=== PATIENT | female | born 1995 | race Caucasian/White ===

== ENCOUNTER 2017-04-03 14:54 | Emergency (ER) | payer OTHER ==
[~2017-04-03] VITALS: Ht 170.2 cm; Wt 58.1 kg
[2017-04-03] MEDS ORDERED: SODIUM CHLORIDE 0.9% 1000ML 1,000 ML IV STA (14:59)
[2017-04-03] MEDS ORDERED: ONDANSETRON INJ 2 MG/ML 2 ML VIAL IV STA (14:59)
[2017-04-03 15:03] VITALS: TEMP 36.7; Ht 170.2 cm; Wt 58.1 kg
[2017-04-03] MEDS ORDERED: OPTIRAY 320 IV PRN (15:15)
[2017-04-03] MEDS ORDERED: PATIENT'S ALLERGY INFO NEEDS ENTERED SCH (15:15)
[2017-04-03 15:45] LABS: BASO % 0.2 %; BASO ABS # 0.02 K/uL (0-0.2); COMPLETE YES; EOS % 0.5 %; HEMATOCRIT 42.5 % (37-47); IG% 0.3 %; LYMPH % 15.6 %; LYMPH ABS # 1.95 K/uL (1.2-3.4); MEAN CELL VOLUME 85.3 fL (80-100); MEAN CORPUSCULAR HEMOGLOBIN 28.9 pg (25-34); MEAN CORPUSCULAR HGB CONC 33.9 g/dl (32-36); MEAN PLATELET VOLUME 10.6 fL (7.4-10.4); MONO % 9.3 %; NEUT % 74.1 %; PLATELET COUNT 231 K/uL (130-400); RED BLOOD COUNT 4.98 M/uL (4.2-5.4); WHITE BLOOD COUNT 12.47 K/uL (4.8-10.8)
[2017-04-03 16:04] LABS: BUN/CREATININE RATIO 14.3 (10-20); CALCIUM 10.1 mg/dl (8.5-10.1); CREATININE 0.9 mg/dl (0.60-1.20); POTASSIUM 4.2 mmol/L (3.5-5.1)
[2017-04-03 16:09] LABS: PARTIAL THROMBOPLASTIN RATIO 1.2; PROTHROMBIN TIME (PATIENT) 11.1 SECONDS (9.0-12.0)
--- NOTE | 2017-04-03 16:57 | DIAGNOSTIC IMAGING REPORT ---
ULTRASOUND OF THE APPENDIX CLINICAL HISTORY: Right lower quadrant abdominal pain. COMPARISON STUDY: No priors. FINDINGS: Real-time, grayscale, and color flow sonography of the right lower quadrant was performed to assess for acute appendicitis. The appendix was not discretely visualized. No inflammatory changes or free fluid are seen in the right lower quadrant. No lymphadenopathy was seen. Survey images of the right flank show moderate right hydroureteronephrosis. A nonobstructing stone is present within the right kidney. Both ureteral jets were seen in the bladder. IMPRESSION: 1. Nonvisualization of the appendix. Note that this does not exclude acute appendicitis. 2. There is right-sided hydronephrosis and a nonobstructing right renal calculus is identified. Given the history of right-sided pain the findings are suspicious for obstructing an obstructing right ureteral calculus. A right ureteral jet was identified during the examination. Correlation with clinical findings and urinalysis will be required. Electronically signed by: Jon Thomas M.D. 04/03/2017 4:56 PM Dictated Date/Time: 04/03/2017 4:54 PM
--- NOTE | 2017-04-03 17:01 | DIAGNOSTIC IMAGING REPORT ---
PELVIC ULTRASOUND CLINICAL HISTORY: Right lower quadrant pain. COMPARISON STUDY: None. TECHNIQUE: Transabdominal and transvaginal sonography of the pelvis was performed. FINDINGS: The uterus measures 6.7 x 3.5 x 4.5 cm. Endometrium measures 1.1 cm in thickness. The right ovary measures 3.4 x 2.8 x 2.9 cm and contains a 2 cm hypoechoic lesion which could reflect a corpus luteal cyst. The left ovary measures 3.3 x 2.1 x 1.9 cm. There was color flow within each ovary. A small amount of free fluid was noted. IMPRESSION: 1. 2 cm hypoechoic right ovarian lesion which may reflect a corpus luteal cyst. No sonographic evidence of ovarian torsion. 2. Small amount of free fluid within the pelvis. 3. Normal sonographic appearance of the uterus and left ovary. Electronically signed by: Cezar Hernandez M.D. 04/03/2017 5:00 PM Dictated Date/Time: 04/03/2017 4:55 PM
--- NOTE | 2017-04-03 18:13 | DIAGNOSTIC IMAGING REPORT ---
CT SCAN OF THE ABDOMEN AND PELVIS WITH IV CONTRAST CLINICAL HISTORY: Right-sided abdominal pain. COMPARISON STUDY: Right lower quadrant and pelvic ultrasounds performed the same day 04/03/2017. TECHNIQUE: Following the IV administration of 94 cc of Optiray 320, CT scan of the abdomen and pelvis is performed from the lung bases to the proximal femora. Images are reviewed in the axial, sagittal, and coronal planes. IV contrast was administered without complication. A dose lowering technique was utilized adhering to the principles of ALARA. CT DOSE: 269.19 mGy.cm FINDINGS: Lung bases: The heart is normal in size and without pericardial effusion. The lung bases are clear. Liver: The contrast-enhanced liver is normal in size, contour, and attenuation. Focal fatty infiltration is seen adjacent to falciform ligament. There is no intrahepatic biliary ductal dilatation. The hepatic veins and portal veins are patent. Gallbladder: Unremarkable. Spleen: Normal in size and attenuation. Pancreas: Unremarkable. Adrenal glands: Unremarkable. Kidneys: The contrast enhanced kidneys are normal in size. There is a 4 mm obstructing calculus in the right proximal ureter seen on axial image #164. This is located at the level of L3-L4 and causes mild to moderate right-sided hydronephrosis. Additional nonobstructing calculi measuring up to 6 mm are present in both kidneys. There is no left-sided hydronephrosis. There is slightly heterogeneous enhancement the right kidney, likely related to obstruction.. Abdominal vasculature: The abdominal aorta is normal in course and caliber. Bowel: The small bowel and colon are normal in course and caliber. The appendix is well-visualized and normal. Peritoneum: There is no intraperitoneal free air or abdominal ascites. Lymphadenopathy: None. Pelvic viscera: The bladder, uterus, and adnexa are normal as visualized. An involuting follicle is noted in the right ovary. There is a small volume of free fluid in the cul-de-sac. Skeletal structures: There is mild thoracolumbar scoliosis. No lytic or blastic lesions are seen. IMPRESSION: 1. There is a 4 mm obstructing calculus in the right proximal ureter. This causes mild to moderate right-sided hydronephrosis. 2. There are additional bilateral nonobstructing renal calculi. 3. There is a small volume of free fluid in cul-de-sac, likely within physiologic limits. Electronically signed by: Jon Thomas M.D. 04/03/2017 6:11 PM Dictated Date/Time: 04/03/2017 6:04 PM
[2017-04-03 18:26] LABS: URINE APPEARANCE CLEAR (CLEAR); URINE BILIRUBIN NEG (NEG); URINE COLOR YELLOW; URINE EPITHELIAL CELL AUTO >30 /lpf (0-5); URINE NITRITE NEG (NEG); URINE SPECIFIC GRAVITY 1.008 (1.000-1.030); UROBILINOGEN NEG (NEG); ZZUR CULT IF INDIC CLEAN CATCH NO
[2017-04-03 19:00] LABS: MANUAL MICROSCOPIC REQUIRED? NO; REVIEW REQ? NO
[2017-04-03] MEDS ORDERED: KETOROLAC TROMETHAMINE 30 MG/ML VIAL IV STA (19:11)
[2017-04-03] MEDS ORDERED: OXYC-57 PO (19:13)
[2017-04-03] MEDS ORDERED: ONDA4TAB10 SL (19:13)
--- NOTE | 2017-04-03 19:16 | EMERGENCY ROOM VISIT NOTE ---
History Report prepared by Scribjulius: Joshua Arrington Under the Supervision of: Dr. Erik Guzman D.O. First contact with patient: 14:58 Chief Complaint: ABDOMINAL PAIN Stated Complaint: ABDOMINAL PAIN History of Present Illness The patient is a 21 year old female who presents to the Emergency Room with complaints of worsening RLQ abdominal pain beginning six hours ago. She was seen at [facility] for her symptoms just prior to arrival and referred to the ED with concerns of possible appendicitis. She rates her pain as an 8/10 in severity. The patient states that her pain was present upon waking this morning. She states that she went to a dance class this morning and felt faint and lightheaded. Her pain is worsened with sitting up. The patient states that she initially thought her pain was period cramping. She is sexually active with one male partner, and always uses condoms but no other form of contraceptive. She notes that a used condom got stuck inside of her this past weekend, but there were no tears to the condom upon removal. The patient's LNMP was about 1 month ago. She states that she has been limping due to her pain recently. Source of History: patient Onset: six hours ago Position: abdomen (RLQ) Symptom Intensity: 8/10 Timing: worsening Modifying Factors (Worsening): other (sitting up) Note: Additional symptoms: episode of lightheadedness. Review of Systems See HPI for pertinent positives & negatives. A total of 10 systems reviewed and were otherwise negative. Past Medical & Surgical Medical Problems: (1) No Known Active Medical Problems Family History No pertinent family history stated. Social History Smoking Status: Never Smoker Occupation Status: [employer] student Current/Historical Medications No Active Prescriptions or Reported Meds Allergies Coded Allergies: Alprazolam (Unverified Adverse Reaction, Unknown, NAUSEA, 04/03/17) Physical Exam Vital Signs Date Time Temp Pulse Resp B/P (MAP) Pulse Ox O2 Delivery O2 Flow Rate FiO2 04/03/17 17:43 74 18 109/75 98 Room Air 04/03/17 15:03 36.7 83 20 113/75 99 Room Air Physical Exam CONSTITUTIONAL/VITAL SIGNS: Reviewed / noted above. GENERAL: Non-toxic in appearance. INTEGUMENTARY: Warm, dry, and [place]. HEAD: Normocephalic. EYES: without scleral icterus or trauma. ENT/OROPHARYNX: clear and moist. LYMPHADENOPATHY/NECK: Is supple without lymphadenopathy or meningismus. RESPIRATORY: Lungs clear and equal. CARDIOVASCULAR: Regular rate and rhythm. GI/ABDOMEN: Soft with RLQ abdominal tenderness. No organomegaly or pulsatile mass. No rebound or guarding. Normal bowel sounds. EXTREMITIES: Warm and well perfused. BACK: No CVA tenderness. NEUROLOGICAL: Intact without focal deficits. PSYCHIATRIC: normal affect. MUSCULOSKELETAL: Normally developed with good muscle tone. Medical Decision & Procedures ER Provider Diagnostic Interpretation: Radiology results as stated below per my review and radiologist interpretation: CT SCAN OF THE ABDOMEN AND PELVIS WITH IV CONTRAST FINDINGS: Lung bases: The heart is normal in size and without pericardial effusion. The lung bases are clear. Liver: The contrast-enhanced liver is normal in size, contour, and attenuation. Focal fatty infiltration is seen adjacent to falciform ligament. There is no intrahepatic biliary ductal dilatation. The hepatic veins and portal veins are patent. Gallbladder: Unremarkable. Spleen: Normal in size and attenuation. Pancreas: Unremarkable. Adrenal glands: Unremarkable. Kidneys: The contrast enhanced kidneys are normal in size. There is a 4 mm obstructing calculus in the right proximal ureter seen on axial image #164. This is located at the level of L3-L4 and causes mild to moderate right-sided hydronephrosis. Additional nonobstructing calculi measuring up to 6 mm are present in both kidneys. There is no left-sided hydronephrosis. There is slightly heterogeneous enhancement the right kidney, likely related to obstruction.. Abdominal vasculature: The abdominal aorta is normal in course and caliber. Bowel: The small bowel and colon are normal in course and caliber. The appendix is well-visualized and normal. Peritoneum: There is no intraperitoneal free air or abdominal ascites. Lymphadenopathy: None. Pelvic viscera: The bladder, uterus, and adnexa are normal as visualized. An involuting follicle is noted in the right ovary. There is a small volume of free fluid in the cul-de-sac. Skeletal structures: There is mild thoracolumbar scoliosis. No lytic or blastic lesions are seen. IMPRESSION: 1. There is a 4 mm obstructing calculus in the right proximal ureter. This causes mild to moderate right-sided hydronephrosis. 2. There are additional bilateral nonobstructing renal calculi. 3. There is a small volume of free fluid in cul-de-sac, likely within physiologic limits. Electronically signed by: Jon Thomas M.D. 04/03/2017 6:11 PM ULTRASOUND OF THE APPENDIX FINDINGS: Real-time, grayscale, and color flow sonography of the right lower quadrant was performed to assess for acute appendicitis. The appendix was not discretely visualized. No inflammatory changes or free fluid are seen in the right lower quadrant. No lymphadenopathy was seen. Survey images of the right flank show moderate right hydroureteronephrosis. A nonobstructing stone is present within the right kidney. Both ureteral jets were seen in the bladder. IMPRESSION: 1. Nonvisualization of the appendix. Note that this does not exclude acute appendicitis. 2. There is right-sided hydronephrosis and a nonobstructing right renal calculus is identified. Given the history of right-sided pain the findings are suspicious for obstructing an obstructing right ureteral calculus. A right ureteral jet was identified during the examination. Correlation with clinical findings and urinalysis will be required. Electronically signed by: Jon Thomas M.D. 04/03/2017 4:56 PM PELVIC ULTRASOUND FINDINGS: The uterus measures 6.7 x 3.5 x 4.5 cm. Endometrium measures 1.1 cm in thickness. The right ovary measures 3.4 x 2.8 x 2.9 cm and contains a 2 cm hypoechoic lesion which could reflect a corpus luteal cyst. The left ovary measures 3.3 x 2.1 x 1.9 cm. There was color flow within each ovary. A small amount of free fluid was noted. IMPRESSION: 1. 2 cm hypoechoic right ovarian lesion which may reflect a corpus luteal cyst. No sonographic evidence of ovarian torsion. 2. Small amount of free fluid within the pelvis. 3. Normal sonographic appearance of the uterus and left ovary. Electronically signed by: Cezar Hernandez M.D. 04/03/2017 5:00 PM Laboratory Results 04/03/17 15:25 Red Blood Count 4.98, Mean Corpuscular Volume 85.3, Mean Corpuscular Hemoglobin 28.9, Mean Corpuscular Hemoglobin Concent 33.9, Mean Platelet Volume 10.6, Neutrophils (%) (Auto) 74.1, Lymphocytes (%) (Auto) 15.6, Monocytes (%) (Auto) 9.3, Eosinophils (%) (Auto) 0.5, Basophils (%) (Auto) 0.2, Neutrophils # (Auto) 9.24, Lymphocytes # (Auto) 1.95, Monocytes # (Auto) 1.16, Eosinophils # (Auto) 0.06, Basophils # (Auto) 0.02 04/03/17 15:25 Test 04/03/17 15:25 04/03/17 17:36 White Blood Count 12.47 K/uL (4.8-10.8) Red Blood Count 4.98 M/uL (4.2-5.4) Hemoglobin 14.4 g/dL (12.0-16.0) Hematocrit 42.5 % (37-47) Mean Corpuscular Volume 85.3 fL (80-100) Mean Corpuscular Hemoglobin 28.9 pg (25-34) Mean Corpuscular Hemoglobin Concent 33.9 g/dl (32-36) Platelet Count 231 K/uL (130-400) Mean Platelet Volume 10.6 fL (7.4-10.4) Neutrophils (%) (Auto) 74.1 % Lymphocytes (%) (Auto) 15.6 % Monocytes (%) (Auto) 9.3 % Eosinophils (%) (Auto) 0.5 % Basophils (%) (Auto) 0.2 % Neutrophils # (Auto) 9.24 K/uL (1.4-6.5) Lymphocytes # (Auto) 1.95 K/uL (1.2-3.4) Monocytes # (Auto) 1.16 K/uL (0.11-0.59) Eosinophils # (Auto) 0.06 K/uL (0-0.5) Basophils # (Auto) 0.02 K/uL (0-0.2) RDW Standard Deviation 38.6 fL (36.4-46.3) RDW Coefficient of Variation 12.4 % (11.5-14.5) Immature Granulocyte % (Auto) 0.3 % Immature Granulocyte # (Auto) 0.04 K/uL (0.00-0.02) Prothrombin Time 11.1 SECONDS (9.0-12.0) Prothromb Time International Ratio 1.0 (0.9-1.1) Activated Partial Thromboplast Time 30.3 SECONDS (21.0-31.0) Partial Thromboplastin Ratio 1.2 Anion Gap 9.0 mmol/L (3-11) Est Creatinine Clear Calc Drug Dose 91.5 ml/min Estimated GFR () 106.7 Estimated GFR (Non- 92.0 BUN/Creatinine Ratio 14.3 (10-20) Calcium Level 10.1 mg/dl (8.5-10.1) Total Bilirubin 3.1 mg/dl (0.2-1) Direct Bilirubin 0.3 mg/dl (0-0.2) Aspartate Amino Transf (AST/SGOT) 17 U/L (15-37) Alanine Aminotransferase (ALT/SGPT) 18 U/L (12-78) Alkaline Phosphatase 102 U/L (45-117) Total Protein 8.3 gm/dl (6.4-8.2) Albumin 4.8 gm/dl (3.4-5.0) Lipase 108 U/L (73-393) Urine Color YELLOW Urine Appearance CLEAR (CLEAR) Urine pH 7.0 (4.5-7.5) Urine Specific [place] 1.008 (1.000-1.030) Urine Protein NEG (NEG) Urine Glucose (UA) NEG (NEG) Urine Ketones 1+ (NEG) Urine Occult Blood 3+ (NEG) Urine Nitrite NEG (NEG) Urine Bilirubin NEG (NEG) Urine Urobilinogen NEG (NEG) Urine Leukocyte Esterase TRACE (NEG) Urine WBC (Auto) 1-5 /hpf (0-5) Urine RBC (Auto) 10-30 /hpf (0-4) Urine Hyaline Casts (Auto) 1-5 /lpf (0-5) Urine Epithelial Cells (Auto) >30 /lpf (0-5) Urine Bacteria (Auto) NEG (NEG) Urine Test NEG (NEG) Laboratory results as stated above per my review. Medications Administered Medications (Trade) Dose Ordered Sig/Lili Route Start Time Stop Time Status Last Admin Dose Admin Sodium Chloride 1,000 ml @ 999 mls/hr Q1H1M STAT IV 04/03/17 14:59 04/03/17 15:59 DC 04/03/17 15:42 999 MLS/HR ED Course 1511: Previous medical records were reviewed. The patient was evaluated in room B7. A complete history and physical examination was performed. Ordered Zofran Inj 4 mg IV, Sodium Chloride 1000 ml @ 999 mls/hr IV. Medical Decision Differential considered: pancreatitis, hepatitis, or acute cholecystitis, AAA, UTI, pyelonephritis, kidney stones, appendicitis, diverticulitis, shingles, bowel obstruction mesenteric ischemia, intussusception,hernia, testicular torsion, ovarian torsion, ruptured ovarian cyst,ectopic , . This is a 21-year-old female who presents to the ED with a chief complaint right lower quadrant abdominal pain. It started around 9 AM this morning. She states that when she sat up and suddenly became worse this morning. She was sent over for evaluation by [facility]. They were concerned about appendicitis as a cause for her right lower quadrant abdominal pain. Further details of her history as noted above. Physical exam reveals some tenderness in the right lower quadrant. White blood cell count was around 12. Bilirubin is 3.1. Complete metabolic panel was unremarkable. Ultrasound of the abdomen reveals findings concerning for right ureterolithiasis with some obstructive changes. CT scan of the abdomen reveals a 4 mm proximal right ureteral stone with some mild to moderate obstructive changes. Pelvic ultrasound did not show acute abnormality other than a corpus luteal cyst. The patient was treated with IV fluids and IV Zofran. She was given IV Toradol. Urine strainer provided. She was felt to be stable for discharge and outpatient follow-up. Urology referral provided. Medication Reconcilliation Current Medication List: was personally reviewed by me Blood Pressure Screening Patient's blood pressure: Normal blood pressure Blood pressure disposition: Did not require urgent referral Impression Primary Impression: Kidney stone Additional Impression: Renal colic on right side Scribe Attestation The scribe's documentation has been prepared under my direction and personally reviewed by me in its entirety. I confirm that the note above accurately reflects all work, treatment, procedures, and medical decision making performed by me. Departure Information Dispostion Home / Self-Care Prescriptions Ondasetron Odt (ZOFRAN ODT) 4 Mg Tab 4 MG SL Q6H for Nausea, #15 TAB Prov: Erik Guzman D.O. 04/03/17 Oxycodone/Acetaminophen 5MG/325MG (PERCOCET 5MG/325MG) Tab 1 TAB PO Q6H Y for Pain, #10 TAB Prov: Erik Guzman D.O. 04/03/17 Referrals No Doctor, Assigned (PCP) Bianca Griffin MD Patient Instructions Kidney Stones - [facility], [facility] Additional Instructions Strain urine for stone. Take ibuprofen 600 mg every 6 hours as needed for discomfort. Percocet as prescribed. No driving within 6 hours of use. Do not take additional Tylenol while taking Percocet. Zofran: Allow one tablet to dissolve under the tongue every 6 hours as needed for nausea or vomiting. Follow-up with urology (Bianca Lopez). Call tomorrow for appointment. Problem Qualifiers
[2017-04-03 19:37] VITALS: BP 116/74; PULSE 80; O2SAT 98
== END 2017-04-03 19:38 | disposition home or self-care (01) ==
LOC: C.EDB 14:56
DX: N20.0 Calculus of kidney (principal); Z79.899 Other long term (current) drug therapy